=== PATIENT | male | born 1975 | race Caucasian/White ===

== ENCOUNTER 2016-09-21 20:38 | Inpatient (IN) | payer MEDICAID ==
[~2016-09-21] VITALS: Ht 162.6 cm; Wt 94.8 kg
[2016-09-21 20:58] VITALS: BP_SYST 149
[2016-09-21] MEDS ORDERED: NS 1000 ML BAG IV ONE (21:15)
[2016-09-21 21:38] LABS: BASOPHILS # (AUTO) 0.2 K/uL (0.0-0.2); BASOPHILS % (AUTO) 1.8 % (0.0-2.0); EOSINOPHILS % (AUTO) 0.2 % (0.0-4.0); HEMATOCRIT 48.9 % (36-54); HEMOGLOBIN 16.3 g/dL (14.0-18.0); LYMPHOCYTES # (AUTO) 1.9 K/uL (1.0-5.5); LYMPHOCYTES % (AUTO) 13.8 % (20.5-51.5); MEAN CORPUSCULAR HEMOGLOBIN 30 pg (27-31); MEAN CORPUSCULAR HGB CONC 33 % (32-36); MEAN CORPUSCULAR VOLUME 90 fL (79.0-98.0); MONOCYTES # (AUTO) 1.1 K/uL (0.0-1.0); MONOCYTES % (AUTO) 7.8 % (1.7-9.3); NEUTROPHILS # (AUTO) 10.5 K/uL (1.8-7.7); NEUTROPHILS % (AUTO) 76.4 % (40.0-70.0); PLATELET COUNT (AUTO) 104 K/uL (130-430); RED BLOOD CELL COUNT(AUTO) 5.44 MIL/uL (4.2-6.2); WHITE BLOOD COUNT (AUTO) 13.7 K/uL (4.8-10.8)
[2016-09-21 21:41] LABS: BILIRUBIN,URINE NEGATIVE (NEGATIVE); BLOOD, URINE 2+ (NEGATIVE); CLARITY/URINE HAZY (CLEAR); COLOR,URINE YELLOW (YELLOW); GLUCOSE,URINE 3+ (NEGATIVE); KETONES,URINE NEGATIVE (NEGATIVE); LEUKOCYTE ESTERASE ,URINE NEGATIVE (NEGATIVE); NITRITE, URINE NEGATIVE (NEGATIVE); PH,URINE 5.5 (5.0-8.0); PROTEIN URINE NEGATIVE (NEGATIVE); UROBILINOGEN,URINE 0.2 (0.2-1.0)
[2016-09-21 21:45] LABS: ABG TOTAL HEMOGLOBIN 16.7 G/dL (12.0-18.0); BLOOD GAS BASE EXCESS 0.6 mmol/L (-3.0-3.0); BLOOD GAS HHB 3.7 % (0.0-6.0); BLOOD GAS PH 7.525 (7.350-7.450); BLOOD O2Hb% 94.8 % (94.0-97.0)
[2016-09-21 21:47] LABS: INR 1.1 (0.80-1.20)
[2016-09-21 21:57] LABS: ALBUMIN 4.1 g/dL (3.4-4.8); CALCIUM 9.2 mg/dL (8.4-11.0); CREATININE 1.22 mg/dL (0.55-1.30); POTASSIUM 3.9 mmol/L (3.5-5.1); TOTAL BILIRUBIN 2.7 mg/dL (0.0-1.0); TOTAL PROTEIN, SERUM 7.9 g/dL (6.4-8.3)
[2016-09-21 22:34] LABS: BACTERIA,URINE FEW /HPF (None Seen)
[2016-09-21 22:36] LABS: MUCUS,URINE None Seen /LPF (None Seen); RBC,URINE 20-50 /HPF (0-3)
[2016-09-22] VITALS (7 sets, daily range): BP systolic 132–147
[2016-09-22] MEDS ORDERED: cefTRIAXone 1 GM IVPB PREMIX 50 ML IV ONE
[2016-09-22] MEDS ORDERED: ONDANSETRON HCL 4 MG/2 ML VIAL IVP ONE
[2016-09-22] MEDS ORDERED: NACL 0.9% 1,000 ML IV ONE
[2016-09-22] MEDS ORDERED: fentaNYL CITRATE/PF 100 MCG/2 ML AMP IVP ONE
[2016-09-22] MEDS ORDERED: INSULIN REGULAR, HUMAN 10 UNITS/0.1 ML INJ IVP ONE
[2016-09-22] MEDS ORDERED: KETOROLAC TROMETHAMINE 30 MG VIAL IVP ONE
[2016-09-22] MEDS ORDERED: AMLO5TAB4 PO (00:04)
[2016-09-22] MEDS ORDERED: PIPERACILLIN/TAZOBACTAM 3.375 GM/VIAL (ZOSYN) IV ONE (02:09)
[2016-09-22] MEDS: NACL 0.9% 1,000 ML IV SCH ×2 (02:23→12:07)
[2016-09-22] MEDS: PIPERACILLIN/TAZO 3.375/DEX-IS 50 ML IV SCH ×5 (02:24→23:20)
[2016-09-22] MEDS: ONDANSETRON HCL 4 MG/2 ML VIAL IVP PRN ×2 (03:55→20:20)
[2016-09-22] MEDS: ACETAMINOPHEN 325 MG TABLET PO PRN ×2 (04:28→12:10)
[2016-09-22] MEDS: INSULIN REGULAR, HUMAN 100 UNITS/ML, 10 ML VIAL (novoLIN R) SUBCUT PRN ×3 (06:45→21:26)
[2016-09-22 11:33] LABS: BASOPHILS # (AUTO) 0.1 K/uL (0.0-0.2); NEUTROPHILS # (AUTO) 12.7 K/uL (1.8-7.7); RED CELL DISTRIBUTION WIDTH 12.1 % (9.0-15.0)
[2016-09-22 11:40] LABS: BASOPHILS % (AUTO) 0.4 % (0.0-2.0); EOSINOPHILS % (AUTO) 0.1 % (0.0-4.0); HEMATOCRIT 41.9 % (36-54); HEMOGLOBIN 14.4 g/dL (14.0-18.0); LYMPHOCYTES # (AUTO) 1.3 K/uL (1.0-5.5); LYMPHOCYTES % (AUTO) 8.7 % (20.5-51.5); MEAN CORPUSCULAR HEMOGLOBIN 31 pg (27-31); MEAN CORPUSCULAR HGB CONC 35 % (32-36); MEAN CORPUSCULAR VOLUME 90 fL (79.0-98.0); MONOCYTES # (AUTO) 0.9 K/uL (0.0-1.0); NEUTROPHILS % (AUTO) 84.8 % (40.0-70.0); RED BLOOD CELL COUNT(AUTO) 4.64 MIL/uL (4.2-6.2)
[2016-09-22] MEDS ORDERED: FLUCONAZOLE 200 mg/ NS 100 ML IV SCH (11:45)
[2016-09-22 11:52] LABS: ALBUMIN 3.3 g/dL (3.4-4.8); CALCIUM 8.3 mg/dL (8.4-11.0); CREATININE 0.93 mg/dL (0.55-1.30); POTASSIUM 3.9 mmol/L (3.5-5.1); TOTAL BILIRUBIN 2.7 mg/dL (0.0-1.0); TOTAL PROTEIN, SERUM 6.7 g/dL (6.4-8.3)
[2016-09-22 12:07] LABS: PLATELET COUNT (AUTO) 80 K/uL (130-430)
[2016-09-22] MEDS ORDERED: COMMUNICATION ORDER XX ONE (14:45)
[2016-09-22] MEDS: MORPHINE 2 MG/ML INJ. SYRINGE IVP PRN (20:21)
[2016-09-23] VITALS: BP_SYST 140
[2016-09-23 04:00] VITALS: BP_SYST 117; BP_SYST 141
[2016-09-23] MEDS: ONDANSETRON HCL 4 MG/2 ML VIAL IVP PRN ×4 (04:21→20:16)
[2016-09-23] MEDS: MORPHINE 2 MG/ML INJ. SYRINGE IVP PRN ×3 (04:22→20:18)
[2016-09-23] MEDS: NACL 0.9% 1,000 ML IV SCH ×3 (05:38→17:42)
[2016-09-23] MEDS: PIPERACILLIN/TAZO 3.375/DEX-IS 50 ML IV SCH ×3 (05:38→17:40)
[2016-09-23] MEDS: INSULIN REGULAR, HUMAN 100 UNITS/ML, 10 ML VIAL (novoLIN R) SUBCUT PRN ×4 (05:42→22:02)
[2016-09-23] MEDS: ACETAMINOPHEN 325 MG TABLET PO PRN ×3 (05:43→18:13)
[2016-09-23 08:00] VITALS: BP_SYST 139
[2016-09-23] MEDS: LACTOBACILLUS RHAMNOSUS GG 1 CAP CAPSULE PO SCH ×2 (08:34→21:56)
[2016-09-23] MEDS: metFORMIN HCL 500 MG TABLET PO SCH ×2 (08:34→17:40)
[2016-09-23 12:00] VITALS: BP_SYST 144
[2016-09-23] MEDS: FLUCONAZOLE 200 mg/ NS 100 ML IV SCH (13:49)
[2016-09-23 16:00] VITALS: BP_SYST 149
[2016-09-23 19:30] VITALS: BP_SYST 142
[2016-09-24 00:07] VITALS: BP_SYST 150
[2016-09-24] MEDS: PIPERACILLIN/TAZO 3.375/DEX-IS 50 ML IV SCH ×4 (00:13→17:08)
[2016-09-24] MEDS: ACETAMINOPHEN 325 MG TABLET PO PRN ×4 (00:14→21:43)
[2016-09-24 03:51] VITALS: BP_SYST 150
[2016-09-24] MEDS: NACL 0.9% 1,000 ML IV SCH ×3 (05:08→23:31)
[2016-09-24] MEDS: MORPHINE 2 MG/ML INJ. SYRINGE IVP PRN ×4 (05:20→23:31)
[2016-09-24] MEDS: INSULIN REGULAR, HUMAN 100 UNITS/ML, 10 ML VIAL (novoLIN R) SUBCUT PRN ×3 (06:34→16:52)
[2016-09-24 07:46] VITALS: BP_SYST 156
[2016-09-24] MEDS: LACTOBACILLUS RHAMNOSUS GG 1 CAP CAPSULE PO SCH ×2 (08:22→21:39)
[2016-09-24] MEDS: metFORMIN HCL 500 MG TABLET PO SCH ×2 (08:23→17:22)
[2016-09-24] MEDS: glipiZIDE XL 2.5 MG/TAB (GLUCOTROL XL) PO SCH ×2 (09:00→11:21)
[2016-09-24] MEDS: LISINOPRIL 10 MG TABLET (PRINIVIL) PO SCH ×2 (09:00→09:02)
[2016-09-24] MEDS: ONDANSETRON HCL 4 MG/2 ML VIAL IVP PRN ×2 (09:44→16:32)
[2016-09-24 09:48] LABS: BASOPHILS % (AUTO) 0.3 % (0.0-2.0); EOSINOPHILS % (AUTO) 0.6 % (0.0-4.0); HEMATOCRIT 43.5 % (36-54); HEMOGLOBIN 14.6 g/dL (14.0-18.0); LYMPHOCYTES # (AUTO) 1.1 K/uL (1.0-5.5); LYMPHOCYTES % (AUTO) 16.6 % (20.5-51.5); MEAN CORPUSCULAR HEMOGLOBIN 31 pg (27-31); MEAN CORPUSCULAR HGB CONC 34 % (32-36); MEAN CORPUSCULAR VOLUME 91 fL (79.0-98.0); MONOCYTES # (AUTO) 0.7 K/uL (0.0-1.0); MONOCYTES % (AUTO) 10.5 % (1.7-9.3); PLATELET COUNT (AUTO) 97 K/uL (130-430); RED CELL DISTRIBUTION WIDTH 11.9 % (9.0-15.0); WHITE BLOOD COUNT (AUTO) 6.8 K/uL (4.8-10.8)
[2016-09-24 14:00] VITALS: BP_SYST 148
[2016-09-24] MEDS: FLUCONAZOLE 200 mg/ NS 100 ML IV SCH (14:17)
[2016-09-24 16:30] VITALS: BP_SYST 156
[2016-09-24] MEDS: ENALAPRILAT DIHYDRATE 1.25 MG/ML VIAL IVP PRN (17:08)
[2016-09-24] MEDS ORDERED: PANTOPRAZOLE SODIUM 40 MG TAB PO ONE (17:45)
[2016-09-24 23:43] VITALS: BP_SYST 151
[2016-09-25 03:33] VITALS: BP_SYST 145
[2016-09-25] MEDS: MORPHINE 2 MG/ML INJ. SYRINGE IVP PRN (05:37)
[2016-09-25 07:17] LABS: BASOPHILS % (AUTO) 0.3 % (0.0-2.0); EOSINOPHILS % (AUTO) 0.7 % (0.0-4.0); HEMOGLOBIN 13.6 g/dL (14.0-18.0); LYMPHOCYTES # (AUTO) 1.4 K/uL (1.0-5.5); LYMPHOCYTES % (AUTO) 22.5 % (20.5-51.5); MEAN CORPUSCULAR HEMOGLOBIN 31 pg (27-31); MEAN CORPUSCULAR HGB CONC 35 % (32-36); MEAN CORPUSCULAR VOLUME 89 fL (79.0-98.0); MONOCYTES # (AUTO) 0.8 K/uL (0.0-1.0); MONOCYTES % (AUTO) 12.2 % (1.7-9.3); NEUTROPHILS # (AUTO) 4.2 K/uL (1.8-7.7); NEUTROPHILS % (AUTO) 64.3 % (40.0-70.0); PLATELET COUNT (AUTO) 108 K/uL (130-430); RED BLOOD CELL COUNT(AUTO) 4.38 MIL/uL (4.2-6.2); WHITE BLOOD COUNT (AUTO) 6.4 K/uL (4.8-10.8)
[2016-09-25 07:24] LABS: CALCIUM 8.3 mg/dL (8.4-11.0); POTASSIUM 3.7 mmol/L (3.5-5.1)
[2016-09-25 07:25] LABS: ALBUMIN 2.8 g/dL (3.4-4.8); CREATININE 0.74 mg/dL (0.55-1.30); TOTAL BILIRUBIN 0.8 mg/dL (0.0-1.0); TOTAL PROTEIN, SERUM 6.4 g/dL (6.4-8.3)
[2016-09-25 07:26] LABS: THYROID STIMULATING HORMONE 1.03 uIu/mL (0.34-4.82)
[2016-09-25 08:00] VITALS: BP_SYST 148
[2016-09-25] MEDS ORDERED: DOXYCYCLINE HYCLATE 100 MG CAPSULE PO SCH (09:00)
[2016-09-25] MEDS ORDERED: PANTOPRAZOLE SODIUM 40 MG TAB PO SCH (09:00)
[2016-09-25] MEDS: NACL 0.9% 1,000 ML IV SCH (09:59)
[2016-09-25] MEDS: LACTOBACILLUS RHAMNOSUS GG 1 CAP CAPSULE PO SCH (10:00)
[2016-09-25] MEDS: glipiZIDE XL 2.5 MG/TAB (GLUCOTROL XL) PO SCH (10:01)
[2016-09-25] MEDS: LISINOPRIL 10 MG TABLET (PRINIVIL) PO SCH (10:01)
[2016-09-25] MEDS ORDERED: GLIP2.5T3 PO (11:44)
[2016-09-25] MEDS ORDERED: DOXY100T2 PO (11:44)
[2016-09-25] MEDS ORDERED: DIF100 PO (11:45)
[2016-09-25] MEDS ORDERED: LISI-600 PO (11:45)
[2016-09-25 12:19] VITALS: BP_SYST 171
[2016-09-25] MEDS: INSULIN REGULAR, HUMAN 100 UNITS/ML, 10 ML VIAL (novoLIN R) SUBCUT PRN (12:50)
[2016-09-25 14:53] VITALS: BP_SYST 138
[2016-09-25] MEDS: FLUCONAZOLE 200 mg/ NS 100 ML IV SCH (15:04)
[2016-09-25] MEDS: ENALAPRILAT DIHYDRATE 1.25 MG/ML VIAL IVP PRN (15:05)
[2016-09-25 16:06] VITALS: BP_SYST 130
== END 2016-09-25 18:25 | disposition home or self-care (01) | DRG 501 ==
LOC: SED 20:38 → STU 09-22 01:30 → SMU 09-23 18:59 → STU 09-24 23:18
PROVIDERS: ADMIT Internal Medicine Hospice and Palliative Medicine; ATTEND Internal Medicine Hospice and Palliative Medicine
DX: N48.1 Balanitis (principal); D69.6 Thrombocytopenia, unspecified; E11.65 Type 2 diabetes mellitus with hyperglycemia; R16.1 Splenomegaly, not elsewhere classified; N12 Tubulo-interstitial nephritis, not specified as acute or chronic; I10 Essential (primary) hypertension; N39.0 Urinary tract infection, site not specified; B96.20 Unspecified Escherichia coli [E. coli] as the cause of diseases classified elsewhere; E66.9 Obesity, unspecified; R79.89 Other specified abnormal findings of blood chemistry; I25.2 Old myocardial infarction; Z91.14 Patient's other noncompliance with medication regimen; Z91.19 Patient's noncompliance with other medical treatment and regimen; Z87.891 Personal history of nicotine dependence; Z68.35 Body mass index [BMI] 35.0-35.9, adult; Z79.899 Other long term (current) drug therapy
CPT/HCPCS: 36415; 36600; 71010; 76700-TC; 80053; 80061; 81000-TC; 82803-TC; 82962; 83036; 83605; 83690-TC; 84443-TC; 84484; 85025; 85610-TC; 85730-TC; 87040-TC; 87086; 87186-TC; 93005; 96361; 96365; 96375; 99285; J0696; J1450; J1815; J1885; J2270; J2405; J2543; J3010; J7030; J7060